=== PATIENT | male | born 1985 | race Caucasian/White ===

== ENCOUNTER 2019-04-12 04:20 | Emergency (ER) | payer OTHER ==
[~2019-04-12] VITALS: Ht 182.9 cm; Wt 83.9 kg
[2019-04-12 04:22] VITALS: BP 156/92
--- NOTE | 2019-04-12 04:25 | NUR ---
ASSUMED CARE OF PT AT THIS TIME. PT BIB [facility] FOR PREBOOK. PT WAS UNRESTRAINED DISABILITY REPRESENTATIVE IN T/C, NO ABD. PT DENIES ANY MEDICAL COMPLAINTS. NO OBVIOUS TRAUMA NOTED. PT IS A&OX4 AND ANSWERS ALL QUESTIONS APPROPRIATELY. AAOX4 WITH EVEN AND STEADY GAIT; PATIENT STATES PAIN OF 0/10; VSS; PATIENT POSITIONED FOR COMFORT; ER MD MADE AWARE OF PT STATUS. WILL CONTINUE TO MONITOR.
--- NOTE | 2019-04-12 04:30 | NUR ---
PATIENT EXAMINED BY DR. PACHECO. PATIENT MEDICALLY CLEARED AND RELEASED IN CUSTODY IN STABLE CONDITION. ORIGINAL PRE-BOOK FORM GIVEN TO OFFICER JR #[id number].
== END 2019-04-12 04:30 ==
LOC: MED 04:20
DX: Z04.1 Encounter for examination and observation following transport accident (principal); V89.2XXA Person injured in unspecified motor-vehicle accident, traffic, initial encounter; Y93.89 Activity, other specified; Y92.410 Unspecified street and highway as the place of occurrence of the external cause; Y99.8 Other external cause status
CPT/HCPCS: 99283